=== PATIENT | male | born 1995 | race Caucasian/White ===

== ENCOUNTER 2021-04-05 15:00 | Emergency (ER) | payer OTHER ==
[~2021-04-05] VITALS: Ht 160 cm; Wt 59.1 kg
[2021-04-05 15:47] VITALS: BP 163/89; TEMP 98.1
[2021-04-05] MEDS ORDERED: CEPHALEXIN500 M1 PO (16:44)
[2021-04-05 17:53] VITALS: PULSE 95
== END 2021-04-05 17:53 | disposition home or self-care (01) ==
LOC: COL.ER 15:00
DX: S61.210A Laceration without foreign body of right index finger without damage to nail, initial encounter (principal); W31.9XXA Contact with unspecified machinery, initial encounter; W31.89XA Contact with other specified machinery, initial encounter